=== PATIENT | male | born 2000 | race Caucasian/White ===

== ENCOUNTER 2021-09-03 15:14 | Emergency (ER) | payer BC ==
[~2021-09-03] VITALS: Ht 182.9 cm; Wt 125.6 kg
[2021-09-03] MEDS ORDERED: LIDOCAINE 1% PF 30 ML VIAL. INJ ONE (16:00)
--- NOTE | 2021-09-03 16:07 | PHYS DOC ---
Adult General Chief Complaint Chief Complaint: ANIMAL BITE HPI HPI Patient is a 21year old male who presents with dog bite to his right hand. Patient reports he had been dog sitting for a friend, when the dogs had started to affect his vision, he reached into separate dog who was being aggressive, and as he reached around the dog had bit his right fourth digit. States episode occurred approximately 1 1/2 to 2 hours ago. He reports the dog is up-to-date on his vaccinations, he had talked with the fiberglass insulation installer. He reports he is up-to-date on his tetanus status, last was in the last couple years. He denies any additional complaints. Review of Systems Review of Systems Constitutional: Denies fever or chills [] Eyes: Denies change in visual acuity, redness, or eye pain [] Musculoskeletal: Denies back pain or joint pain [] Integument: Denies rash[] reports laceration to finger Neurologic: Denies headache, focal weakness or sensory changes [] All other systems were reviewed and found to be within normal limits, except as documented in this note. Allergies Allergies Allergies Coded Allergies Type Severity Reaction Last Updated Verified No Known Drug Allergies 09/03/21 No Physical Exam Physical Exam Constitutional: Well developed, well nourished, no acute distress, non-toxic appearance. [] HENT: Normocephalic, atraumatic, bilateral external ears normal, oropharynx moist, no oral exudates, nose normal. [] Skin: Warm, dry, no erythema, no rash. [] laceration to pad of right fourth finger Damage to nail of right distal fourth finger. Minimal amount of bruising noted over nail. Full range of motion to finger. Approximately 1 cm laceration to medial aspect of the pad of the right finger. Back: No tenderness, no CVA tenderness. [] Extremities: No tenderness, no cyanosis, no clubbing, ROM intact, no edema. [] Neurologic: Alert and oriented X 3, normal motor function, normal sensory function, no focal deficits noted. [] Current Patient Data Vital Signs Vital Signs Date Time Temp Pulse Resp B/P (MAP) Pulse Ox O2 Delivery O2 Flow Rate FiO2 09/03/21 17:30 70 20 150/80 (103) 98 Room Air 09/03/21 16:09 98.4 78 20 167/89 (115) 100 Room Air EKG EKG [] Radiology/Procedures Radiology/Procedures [] Impressions: Exam: XR FINGER(S)_RIGHT 2+VIEWS History: Trauma to fourth digit Comparison: None. Findings: Osseous mineralization is normal. No acute fracture or dislocation. No significant degenerative changes. Soft tissues are unremarkable. Impression: 1. No acute osseous abnormality in the right ring finger. Electronically signed by: Victoriano Epperson MD (09/03/2021 5:11 PM) [id number] DICTATED AND SIGNED BY: VICTORIANO EPPERSON MD DATE: 09/03/211709 CC: MELL FRASER APRN; CHAYO FLOYD DO ~ Heart Score C/O Chest Pain: N/A Risk Factors: Risk Factors: DM, Current or recent (<one month) smoker, HTN, HLP, family history of CAD, obesity. Risk Scores: Risk Factors: DM, Current or recent (<one month) smoker, HTN, HLP, family history of CAD, obesity. Course & Med Decision Making Course & Med Decision Making Pertinent Labs and Imaging studies reviewed. (See chart for details) [] Patient with singular dog bite to his right fourth distal finger. With resulting laceration and crush to his nail at the same finger. The dog is up-to-date on vaccinations, the patient is up-to-date on his tetanus vaccinati on. We will clean the wound. given the laceration, and the crush, will x-ray digit to identify any fractures. We will plan to loosely suture laceration and start patient on antibiotics at discharge Dragon Disclaimer Dragon Disclaimer This electronic medical record was generated, in whole or in part, using a voice recognition dictation system. Departure Departure: Impression: Primary Impression: Animal bite of finger Disposition: 01 HOME / SELF CARE / HOMELESS Condition: GOOD Referrals: CHAYO FLOYD DO (PCP) Patient Instructions: Animal Bite Additional Instructions: Take the antibiotics for the entire duration Take them with some food to limit nausea Follow up with your primary care provider in 7 days for suture removal. You may also consider returning to the ER for suture removal Scripts Amoxicillin/Potassium Clav (AUGMENTIN 875-125 TABLET) 1 Each Tablet 1 TAB PO BID for animal bite for 10 Days, #20 TAB 0 Refills Prov: MELL FRASER APRN 09/03/21 Laceration Repair Lac Repair Indication: []laceration Procedure: The patient was placed in the appropriate position and anesthesia using 5 ml of 1% lidocaine without Epi as digita block. The area was cleansed with betadine and saline soak. . The laceration was closed with (2) 4/0 simple interupted sutures The wound area was then dressed with gauze. Total repaired wound length: [1.5 cm Other Items: n/a The patient tolerated the procedure well Complications: NA. Problem Qualifiers Primary Impression: Animal bite of finger Encounter type: initial encounter Qualified Codes: S61.259A - Open bite of unspecified finger without damage to nail, initial encounter MELL FRASER APRN September 03, 2021 16:07
--- NOTE | 2021-09-03 17:13 | RAD ---
Exam: XR FINGER(S)_RIGHT 2+VIEWS History: Trauma to fourth digit Comparison: None. Findings: Osseous mineralization is normal. No acute fracture or dislocation. No significant degenerative reynolds es. Soft tissues are unremarkable. Impression: 1. No acute osseous abnormality in the right ring finger. Electronically signed by: Victoriano Epperson MD (09/03/2021 5:11 PM) [id number]
[2021-09-03] MEDS ORDERED: AMOX1TAB61 PO (17:23)
[2021-09-03 17:30] VITALS: BP 150/80
== END 2021-09-03 17:40 | disposition home or self-care (01) ==
LOC: ER 15:14
DX: S61.214A Laceration without foreign body of right ring finger without damage to nail, initial encounter (principal); W54.0XXA Bitten by dog, initial encounter; Y93.89 Activity, other specified; Y92.89 Other specified places as the place of occurrence of the external cause; Y99.8 Other external cause status
CPT/HCPCS: 12001; 73140; 99283